=== PATIENT | female | born 1990 | race Two or more races ===

== ENCOUNTER 2023-07-13 11:42 | Emergency (ER) | payer MEDICAID ==
[~2023-07-13] VITALS: Ht 154.9 cm; Wt 100.4 kg
[2023-07-13] MEDS ORDERED: AZITTAB PO (14:29)
[2023-07-13] MEDS ORDERED: BENZ200C64 PO (14:29)
[2023-07-13] MEDS ORDERED: FAMO20TA10 PO (14:29)
[2023-07-13] MEDS ORDERED: ALBUAER3 IN (14:29)
[2023-07-13] MEDS ORDERED: IPRATROPIUM BROM 0.5 MG/2.5ML INH SOL NEB ONE (14:30)
[2023-07-13] MEDS ORDERED: ALBUTEROL SULF 2.5 MG/0.5ML(0.5%) NEB SOLN NEB ONE (14:30)
[2023-07-13] MEDS ORDERED: DexAMETHasone SOD PHOS 10MG/1ML VIAL INJ IM ONE (14:30)
[2023-07-13 15:01] VITALS: BP 152/96; PULSE 95; RESP 18; TEMP 98.3; O2SAT 95
== END 2023-07-13 15:03 | disposition home or self-care (01) ==
LOC: ER 11:42
DX: J20.9 Acute bronchitis, unspecified (principal); F17.210 Nicotine dependence, cigarettes, uncomplicated; R06.02 Shortness of breath; R07.89 Other chest pain
CPT/HCPCS: 71046; 94640; 96372; 99283; J1100; J7644